=== PATIENT | female | born 1985 | race Caucasian/White ===

== ENCOUNTER 2018-01-23 13:19 | Emergency (ER) | payer MEDICAID ==
[2018-01-23 14:16] LABS: BASOPHILS # (AUTO) 0.2 10^3/uL (0.0-0.1); BASOPHILS % (AUTO) 1.3 %; EOSINOPHILS # (AUTO) 0.4 10^3/uL (0.0-0.7); EOSINOPHILS % (AUTO) 3.3 %; HGB - HEMOGLOBIN 14.3 g/dL (12.0-16.0); LYMPHOCYTES # (AUTO) 2.4 10^3/uL (1.5-3.5); LYMPHOCYTES % (AUTO) 20.6 %; MEAN CORPUSCULAR HEMOGLOBIN 31.1 pg (27.0-31.0); MEAN CORPUSCULAR HGB CONC 33.9 g/dL (32.0-36.0); MEAN CORPUSCULAR VOLUME 91.7 fL (81.0-99.0); MEAN PLATELET VOLUME 9.2 fL (7.9-10.8); MONOCYTES # (AUTO) 0.7 10^3/uL (0.0-1.0); MONOCYTES % (AUTO) 5.6 %; NEUTROPHILS % (AUTO) 69.2 %; PLT - PLATELET COUNT 290 10^3/uL (130-450); RED BLOOD COUNT 4.62 10^6/uL (4.20-5.40); RED CELL DISTRIBUTION WIDTH 13.5 % (12.0-15.0); WHITE BLOOD COUNT 11.5 x10^3/uL (4.8-10.8)
[2018-01-23 14:28] LABS: ALBUMIN 4.7 g/dL (3.2-5.5); ALBUMIN/GLOBULIN RATIO 1.6 (1.0-2.2); BILIRUBIN,TOTAL 0.4 mg/dL (0.2-1.0); CREATININE 0.5 mg/dL (0.4-1.0); TOTAL PROTEIN 7.7 g/dL (6.7-8.2)
--- NOTE | 2018-01-23 18:58 | Ultrasound Report ---
Reason: early , vag bleeding Procedure Date: 01/23/2018 Accession Number: [id number] / [id number] Procedure: US - OB First Trimester CPT Code: FULL RESULT: EXAM: FIRST TRIMESTER OBSTETRIC ULTRASOUND (Less than 11 weeks) EXAM DATE: 01/23/2018 06:49 PM. CLINICAL HISTORY: Early , vag bleeding. LMP: 12/15/2017. COMPARISONS: None available. TECHNIQUE: Transabdominal and transvaginal ultrasound examination with static image documentation. CLINICAL DATES: EGA 5 weeks 4 days with KEVIN 09/21/2018 based on LMP. ASSESSMENT: Gestational Sac: None visualized. MATERNAL STRUCTURES: Uterus: Retroverted. The endometrial stripe measures 5.5 mm in thickness. Cervix: Closed. Right Ovary/Adnexa: The ovary measures 3.1 x 2.2 x 2.0 cm, volume 7.1 cc. Unremarkable. Left Ovary/Adnexa: The ovary measures 2.2 x 1.3 x 1.6 cm, volume 2.4 cc. Unremarkable. Free Fluid: Trace free fluid. Other: None. IMPRESSION: No intrauterine visualized. Findings may represent very early , although ectopic not entirely excluded. Recommend continued surveillance of serial quantitative beta hCG with short-term follow-up imaging. [facility]
[2018-01-23 19:12] VITALS: BP 113/73
--- NOTE | 2018-01-23 20:44 | ED Physician Documentation ---
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 She was not expecting to get . She estimates she is approximately 5 weeks . She has developed a bleeding over the past week with some pelvic cramping. Review of Systems Constitutional: denies: Fever, Chills Eyes: denies: Decreased vision Ears: denies: Ear pain Nose: reports: Rhinorrhea / runny nose, Congestion Throat: denies: Sore throat Cardiac: denies: Chest pain / pressure, Palpitations Respiratory: reports: Cough. denies: Dyspnea GI: reports: Nausea. 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 surgery) HEENT: Tonsil/Adenoidectomy - Present Medications Home Medications: Ambulatory Orders Medication Instructions Recorded Confirmed Amox/Clav 875/125 [Augmentin] 1 each PO Q12H #20 tablet 01/23/18 Progesterone Suppository 01/23/18 - Allergies Allergies/Adverse Reactions: Allergies Allergy/AdvReac Type Severity Reaction Status Date / Time Sulfa (Sulfonamide AdvReac Emesis Verified 01/23/18 13:48 Antibiotics) - Social History Does the pt smoke?: Yes Smoking Status: Current every day smoker Does the pt drink ETOH?: No Does the pt have substance abuse?: No PD ED PE NORMAL - Vitals Vital signs reviewed: Yes (normal ) - General General: Alert and oriented X 3, No acute distress, Well developed/nourished - HEENT HEENT: Atraumatic, PERRL, EOMI, Pharynx benign, Dentition benign, Other (Righ TM is inflamed in the attic left is clear) - Neck Neck: Supple, no meningeal sign - Cardiac Cardiac: RRR, No murmur - Respiratory Respiratory: No respiratory distress, Clear bilaterally - Abdomen Abdomen: Soft, Non tender - Back Back: No CVA TTP, No spinal TTP - Derm Derm: Normal color, Warm and dry, No rash - Neuro Neuro: Alert and oriented X 3, 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, No motor deficit, No sensory deficit, Normal speech Eye Opening: Spontaneous Motor: Obeys Commands Verbal: Oriented GCS Score: 15 - Psych Psych: Normal mood, Normal affect Results - Vitals Vitals: Vital Signs - 24 hr 01/23/18 01/23/18 13:43 19:12 Temperature 36.2 C L 36.8 C Heart Rate 95 93 Respiratory 16 16 Rate Blood Pressure 118/69 113/73 O2 Saturation 98 99 Oxygen O2 Source Room air - Labs Labs: Laboratory Tests 01/23/18 01/23/18 01/23/18 14:06 14:06 14:06 WBC 11.5 H RBC 4.62 Hgb 14.3 Hct 42.4 MCV 91.7 MCH 31.1 H MCHC 33.9 RDW 13.5 Plt Count 290 MPV 9.2 Neut # (Auto) 8.0 H Lymph # (Auto) 2.4 Mcleod # (Auto) 0.7 Eos # (Auto) 0.4 Baso # (Auto) 0.2 H Absolute Nucleated RBC 0.00 Nucleated RBC % 0.0 Sodium 136 Potassium 3.6 Chloride 104 Carbon Dioxide 23 Anion Gap 9.0 BUN 13 Creatinine 0.5 Estimated GFR (MDRD) 141 Glucose 87 Calcium 9.0 Total Bilirubin 0.4 AST 15 ALT 12 Alkaline Phosphatase 73 Total Protein 7.7 Albumin 4.7 Globulin 3.0 Albumin/Globulin Ratio 1.6 Lipase 27 HCG, Quant Blood Type O POSITIVE 01/23/18 14:06 WBC RBC Hgb Hct MCV MCH MCHC RDW Plt Count MPV Neut # (Auto) Lymph # (Auto) Mcleod # (Auto) Eos # (Auto) Baso # (Auto) Absolute Nucleated RBC Nucleated RBC % Sodium Potassium Chloride Carbon Dioxide Anion Gap BUN Creatinine Estimated GFR (MDRD) Glucose Calcium Total Bilirubin AST ALT Alkaline Phosphatase Total Protein Albumin Globulin Albumin/Globulin Ratio Lipase HCG, Quant 48.14 Blood Type - Rads (name of study) u/s ob 1st trimester Radiology: Prelim report reviewed (Impression: No intrauterine visualized. Findings may represent early , although ectopic not entirely excluded. Recommend continued surveillance of quantitative beta- hCG with short-term follow-up imaging.), EMP read indepedently, See rad report PD MEDICAL DECISION MAKING - ED course Complexity details: reviewed results, re-evaluated patient, considered differential, d/w patient ED course: 32-year-old female with a number of prior miscarriages appears to be having miscarriage today. She has a low quantitative hCG she does have a bubble in her uterus without a pole showing. She has had a number of miscarriages previously and she will need follow-up hCG in 2 days time. She will follow-up with Dr. Ngo. In addition she does have an incidental otitis media on the right side and we will give her a [id number] instructions with a prescription for some Augmentin. Departure - Departure Disposition: Home, Self Care Clinical Impression: Threatened in first trimester Otitis media Qualifiers: Otitis media type: suppurative Chronicity: acute Laterality: right Recurrence: not specified as recurrent Spontaneous tympanic membrane rupture: without spontaneous rupture Qualified Code(s): H66.001 - Acute suppurative otitis media without spontaneous rupture of ear drum, right ear Condition: Stable Instructions: ED Ear Infec Wait See Abx Tx Ch, ED Miscarriage Poss, ED Abdominal Pain Rule Out Ectopic Follow-Up: Aury Mei, DO [Provider Admit Priv/Credential] - Prescriptions: Amox/Clav 875/125 [Augmentin] 1 each PO Q12H #20 tablet Comments: Today your hCG was 49. You will need a follow-up hCG in 2 days time follow-up with Dr. Ngo.
== END 2018-01-23 21:17 | disposition home or self-care (01) ==
LOC: ED 13:19
DX: O20.0 Threatened abortion (principal); H66.001 Acute suppurative otitis media without spontaneous rupture of ear drum, right ear; F17.200 Nicotine dependence, unspecified, uncomplicated
CPT/HCPCS: 36415; 76801; 76817; 80053; 83690; 84702; 85025; 86900; 86901; 99283